=== PATIENT | female | born 1990 | race Caucasian/White ===

== ENCOUNTER 2020-02-09 19:51 | Emergency (ER) | payer MEDICAID, SELFPAY ==
[2020-02-09 19:53] VITALS: BP 126/95; PULSE 87; RESP 18; TEMP 36.3; O2SAT 97; BMI 41.8
[2020-02-09 20:09] VITALS: PULSE 82; RESP 14; O2SAT 96
[2020-02-09 20:11] LABS: Bedside Glucose 433 mg/dL (70-110)
--- NOTE | 2020-02-09 20:17 | ED.VIS.GEN ---
History of Present Illness Chief Complaint: Hyperglycemia Informant: Patient Current Severity: Moderate Maximum Severity: Moderate Narrative: Patient presents secondary to elevated blood sugar. She does not have a history of diabetes. She had back surgery 2 weeks ago at [facility] in [place]. She states she is not on steroids and really has not even been using pain medication. For the past couple weeks has been feeling woozy and dizzy. She has noted increased thirst, increased urination, and blurry vision. Her mother who was a diabetic checked her blood sugar today and it was reading high on her meter which typically checks to the level of 600. Patient has a history of PCOS and stopped taking metformin a year ago. She had some leftover so she took 1000 mg of metformin at 5:30 PM. When blood sugar did not drop she took a 500 mg extended release tab at 7 PM. On arrival here and advised that her blood sugar was reading 433. - Past Medical History (1) PCOS (polycystic ovarian syndrome) Status: Chronic (2) Hypothyroid Status: Chronic (3) Viral myocarditis Status: Resolved (4) Chronic back pain Status: Chronic Past Medical History - Allergies and Home Meds Allergies/Adverse Reactions: Allergies amoxicillin Adverse Reaction (Verified 02/09/20 19:54) Calvin Primary Care Physician: [facility] Doctor,Out of [NON-STAFF] - Prior records reviewed: Yes Lives: Spouse/ Significant Other Review of Systems General: Denies: Chills, Fever Eyes: Denies: Visual changes - bilaterally ENT: Denies: Bilateral ear pain Cardiovascular: Denies: Chest pain Respiratory: Denies: Dyspnea, Cough Gastrointestinal: Reports: Nausea. Denies: Abdominal pain, Vomiting Genitourinary: Reports: Frequency Musculoskeletal: Denies: Extremity Pain Skin: Denies: Rash Endocrine: Reports: Polyuria, Polydipsia Hematologic: Denies: Easy bruising, Easy bleeding Allergy: Denies: Uticaria Physical Exam Vital Signs/Narrative: Vital Signs Temp Pulse Resp BP Pulse Ox 02/09/20 19:53 97.4 F L 87 18 126/95 H 97 Inital Vital Signs reviewed: Yes General: Well nourished, Well developed Head: Normocephalic ENT: Moist mucous membranes Neck: Supple Cardiovascular: Regular rate, Regular rhythm Respiratory: No distress, CTA bilaterally Abdomen: Soft, Nontender Extremities: Nontender Skin: Normal color Neurological: Alert, Oriented x3 Psychological: Normal affect Diagnostic/Tx/Re-eval Laboratory Results 02/09/20 02/09/20 02/09/20 20:04 20:15 20:31 WBC 8.7 RBC 4.40 Hgb 13.4 Hct 38.3 MCV 87.0 MCH 30.5 MCHC 35.0 RDW Std Deviation 38.0 RDW Coeff of Debbie 11.9 Plt Count 303 MPV 10.5 Immature Gran % (Auto) 0.200 Neut % (Auto) 57.4 Lymph % (Auto) 34.9 Garrard % (Auto) 5.0 Eos % (Auto) 1.8 Baso % (Auto) 0.7 Absolute Neuts (auto) 5.0 Absolute Lymphs (auto) 3.05 Nucleated RBC % 0 Sodium Potassium Chloride Carbon Dioxide Anion Gap BUN Creatinine Estim Creat Clear Calc Est GFR (MDRD) Af Amer Est GFR (MDRD) Non-Af BUN/Creatinine Ratio Glucose Hemoglobin A1c Calcium Serum , Qual Urine Color Yellow Urine Clarity Clear Urine pH 6.5 Ur Specific [place] 1.010 Urine Protein Negative Urine Glucose (UA) 1000 H Urine Ketones 5 H Urine Occult Blood 25 H Urine Nitrite Negative Urine Bilirubin Negative Urine Urobilinogen Normal Ur Leukocyte Esterase 25 H Urine RBC 0-5 SEEN Urine WBC 0 SEEN Ur Squamous Epith Cells 0-5 SEEN Urine Bacteria 0 SEEN Urine Mucus 0 SEEN Acetone Level POC Glucose 433 H 02/09/20 02/09/20 02/09/20 20:31 20:31 20:31 WBC RBC Hgb Hct MCV MCH MCHC RDW Std Deviation RDW Coeff of Debbie Plt Count MPV Immature Gran % (Auto) Neut % (Auto) Lymph % (Auto) Garrard % (Auto) Eos % (Auto) Baso % (Auto) Absolute Neuts (auto) Absolute Lymphs (auto) Nucleated RBC % Sodium 131 L Potassium 3.8 Chloride 100 Carbon Dioxide 27.0 Anion Gap 4 L BUN 5 L Creatinine 0.85 Estim Creat Clear Calc 87.08 Est GFR (MDRD) Af Amer 100 Est GFR (MDRD) Non-Af 83 BUN/Creatinine Ratio 5.9 L Glucose 417 H Hemoglobin A1c 8.6 H Calcium 9.4 Serum , Qual Urine Color Urine Clarity Urine pH Ur Specific [place] Urine Protein Urine Glucose (UA) Urine Ketones Urine Occult Blood Urine Nitrite Urine Bilirubin Urine Urobilinogen Ur Leukocyte Esterase Urine RBC Urine WBC Ur Squamous Epith Cells Urine Bacteria Urine Mucus Acetone Level NEGATIVE POC Glucose 02/09/20 02/09/20 02/09/20 20:31 21:29 22:52 WBC RBC Hgb Hct MCV MCH MCHC RDW Std Deviation RDW Coeff of Debbie Plt Count MPV Immature Gran % (Auto) Neut % (Auto) Lymph % (Auto) Garrard % (Auto) Eos % (Auto) Baso % (Auto) Absolute Neuts (auto) Absolute Lymphs (auto) Nucleated RBC % Sodium Potassium Chloride Carbon Dioxide Anion Gap BUN Creatinine Estim Creat Clear Calc Est GFR (MDRD) Af Amer Est GFR (MDRD) Non-Af BUN/Creatinine Ratio Glucose Hemoglobin A1c Calcium Serum , Qual NEGATIVE Urine Color Urine Clarity Urine pH Ur Specific [place] Urine Protein Urine Glucose (UA) Urine Ketones Urine Occult Blood Urine Nitrite Urine Bilirubin Urine Urobilinogen Ur Leukocyte Esterase Urine RBC Urine WBC Ur Squamous Epith Cells Urine Bacteria Urine Mucus Acetone Level POC Glucose 348 H 285 H - Medical Decision Making Patient's blood sugar was 433 on arrival. She had taken metformin at home prior to coming in. After 1 L of IV fluid blood sugar was 348 and after 2 L of IV fluid sugars 285. She states she actually feels worse at this time. She has not eaten anything today. She is given something to eat. I advised her that my concern is that her blood sugars dropping too quickly as she has likely acclimated to elevated blood sugars in the past several weeks. She is observed until 5 hours after her most recent dose of metformin. Blood sugar we checked at this time. She will contact her PCP in [place] tomorrow. I did advise that they cannot call the medical records department and her records could be faxed with her blood results tonight. ED Disposition - Plan for ED Patient: Disposition: Home or Assisted Living Diagnosis: Diabetes mellitus, new onset Instructions: ED Hyperglycemia New Susp Diabetes Referrals: [facility] Doctor,Out of [NON-STAFF] - 1 Day
[2020-02-09] MEDS: 0.9% Normal Saline 1,000 ML 1000 ML IV (20:29)
[2020-02-09 20:38] LABS: Absolute Lymphocyte Count 3.05 X10^3/uL (0.83-4.51); Basophil# 0.06 X10^3/uL; Basophil% 0.7 % (0-1); Eosinophil# 0.16 X10^3/uL; Eosinophils% 1.8 % (0-5); Hematocrit 38.3 % (37-47); Hemoglobin 13.4 g/dL (12.0-15.0); Lymphocyte # 3.05 X10^3/ul (4.0); Lymphocyte % 34.9 % (19-41); Mean Corpuscular Hgb 30.5 pg (27.0-32.0); Mean Platelet Vol. 10.5 fl (6.2-12.0); Monocyte# 0.44 X10^3/uL; NRBC Flagged by Analyzer 0 % (0-5); Neutrophil % 57.4 % (47-70); Platelet Count 303 K/mm3 (150-450); RBC Distribution Width CV 11.9 % (11.6-14.6); White Blood Count 8.7 K/mm3 (4.4-11.0)
[2020-02-09 20:53] LABS: Bacteria 0 SEEN /hpf (None Seen); Mucous, Urine 0 SEEN /hpf (<or=2+); White Blood Cells 0 SEEN /hpf (0-5)
[2020-02-09 20:55] LABS: Color, Urine Yellow (Yellow); Glucose, Dipstick 1000 mg/dl (Normal); Ketone-Dipstick 5 mg/dl (Negative); Leukocyte Esterase-Dipstick 25 /ul (Negative); Nitrite-Dipstick Negative (Negative); Occult Blood-Urine 25 /ul (Negative); Protein-Dipstick Negative (Negative); Urine Bilirubin Dipstick Negative (Negative); Urine Clarity Clear (Clear); Urine Urobilinogen Normal (Normal); Urine pH 6.5 (5.0 - 8.0)
[2020-02-09 21:02] LABS: Squamous Epithelial Cells - UA 0-5 SEEN /hpf (5-10)
[2020-02-09 21:03] LABS: Red Blood Cells-Urine 0-5 SEEN /hpf (0-5)
[2020-02-09 21:10] LABS: Anion Gap 4 (5-15); BUN 5 mg/dL (7-18); BUN/Creat Ratio 5.9 RATIO (10-20); Calcium,Total 9.4 mg/dL (8.5-10.1); Chloride 100 mmol/L (98-107); Creatinine, Serum 0.85 mg/dL (0.55-1.02); EST Glomerular Filtration Rate 83 mL/min (>60); Est Glom Filt Rate - Afr Amer 100 mL/min (>60); Estimated Creatinine Clearance 87.08 ml/min; Glucose 417 mg/dL (74-106); Potassium 3.8 mmol/L (3.5-5.1); Sodium Level 131 mmol/L (136-145)
[2020-02-09 21:14] LABS: Hemoglobin A1c 8.6 % (3.8-5.6); Internal QC Validated? YES +Cl - CLEAR BKGD; Pregnancy, Serum, hCG Quali. NEGATIVE Negative
[2020-02-09] MEDS: 0.9% Normal Saline 1,000 ML 999 ML IV (21:33)
[2020-02-09 21:35] LABS: Bedside Glucose 348 mg/dL (70-110)
[2020-02-09 22:54] VITALS: BP 132/89; PULSE 89; RESP 15; O2SAT 99
[2020-02-09 23:01] LABS: Bedside Glucose 285 mg/dL (70-110)
[2020-02-10 00:31] LABS: Bedside Glucose 226 mg/dL (70-110)
== END 2020-02-10 00:24 | disposition home or self-care (01) ==
PROVIDERS: Emergency Provider Emergency Medicine
DX: E11.65 Type 2 diabetes mellitus with hyperglycemia (principal); E28.2 Polycystic ovarian syndrome
CPT/HCPCS: 80048; 81001; 82009; 82962; 83036; 84703; 85025; 96360; 96361; 99282; J7030

== ENCOUNTER → 2020-07-18 | Outpatient (CLI) | payer MEDICAID, SELFPAY ==
[2020-07-18 14:09] VITALS: BMI 44.3
[2020-07-18 18:56] LABS: Chlamydia Trachomatis by PCR Negative (Negative); Neisserai gonorrhoeae by PCR Negative (Negative); Probe Check PASS; Sample Adequacy Control PASS; Specimen Processing Control PASS
[2020-07-21 21:15] LABS: HPV APTIMA, High Risk Negative (Negative)
== END | disposition home or self-care (01) ==
LOC: LABSPEC 15:13
PROVIDERS: Referring Provider Nurse Practitioner Women's Health; Visit Provider Nurse Practitioner Women's Health
DX: Z11.3 Encounter for screening for infections with a predominantly sexual mode of transmission (principal); Z12.4 Encounter for screening for malignant neoplasm of cervix
CPT/HCPCS: 87491; 87591; 87624; 88175; G0145

== ENCOUNTER 2022-05-10 12:49 | Emergency (ER) | payer MEDICAID, SELFPAY ==
[2022-05-10 12:50] VITALS: BP 147/89; PULSE 92; RESP 18; TEMP 36.4; O2SAT 100; BMI 39.1
--- NOTE | 2022-05-10 13:37 | EKG12_ITS ---
Test Reason : PAIN Blood Pressure : / mmHG Vent. Rate : 082 BPM Atrial Rate : 082 BPM P-R Int : 190 ms QRS Dur : 086 ms QT Int : 374 ms P-R-T Axes : 053 -11 013 degrees QTc Int : 436 ms Normal sinus rhythm Minimal voltage criteria for LVH, may be normal variant ( R in aVL ) Borderline ECG Confirmed by LUCERO BYRNES, JAYNE ([id number]), book or script editor MIKIE WASSERMAN ([id number]) on 05/13/2022 1:20:45 PM Referred By: Confirmed By:JAYNE BARKER MD
--- NOTE | 2022-05-10 13:43 | EDS_ITS ---
[facility] <HEIDY Castañeda - Last Filed: 05/10/22 19:25> History of Present Illness Chief Complaint: Back Narrative Narrative: Patient presents with 2 days of mid upper left-sided back pain that radiates into her left rib cage and under the left breast. She has a history of back problems and has had 3 lumbar back surgeries. She has a history of spinal stenosis, arthritis in her back, bone spurs, and herniated disks in her lumbar spine. She reports no aggravated injury, no heavy lifting. She reports limited range of motion in her back, left arm, and neck. She did take her usual cyclobenzaprine and gabapentin last night with no relief of pain. She reports she had some tingling in her L arm this morning that quickly went away. She has no history of blood clots. She denies shortness of breath, difficulty breathing, smoking, and a history of cardiac problems. [facility] <HEIDY Castañeda - Last Filed: 05/10/22 19:25> [facility] Medical History (Updated 05/10/22 @ 15:[address] Nini Huerta MD) Anxiety Hypothyroidism PCOS (polycystic ovarian syndrome) Type 2 diabetes mellitus Home Medications cyclobenzaprine 5 mg tablet 5 mg PO QHS 07/18/20 [History Last Taken Unknown] escitalopram oxalate 5 mg tablet (Lexapro) 5 mg PO DAILY 07/18/20 [History Last Taken Unknown] gabapentin 100 mg capsule (Neurontin) 100 mg PO DAILY 07/18/20 [History Last Taken Unknown] glipizide 5 mg tablet 5 mg PO DAILY 07/18/20 [History Last Taken Unknown] levothyroxine 25 mcg tablet (Synthroid) 25 mcg PO DAILY 07/18/20 [History Last Taken Unknown] metformin 500 mg tablet 500 mg PO DAILY 07/18/20 [History Last Taken Unknown] norgestimate 0.25 mg-ethinyl estradiol 35 mcg tablet (Sprintec (28)) 1 tab PO QDAY #84 tabs 07/18/20 [Rx Last Taken Unknown] hydrocodone-acetaminophen 5-325mg 5mg-325mg 1 tab PO Q6H PRN pain 3 days #10 tabs 05/10/22 [Rx Last Taken Unknown] prednisone 20 mg tablet 40 mg PO DAILY #10 tabs 05/10/22 [Rx Last Taken Unknown] Allergy/AdvReac Type Severity Reaction Status Date / Time amoxicillin AdvReac Hives Verified 05/10/22 12:52 Family History Mother Hypertension Diabetes Hyperlipidemia Grandmother Breast cancer Heart disease Diabetes Surgical History History of back surgery History of cholecystectomy Social History household members: significant other and children number of children: 2 current occupational status: employed current occupation: works from home history of recent travel: No sexually active: Yes Smoking Status: Never smoker alcohol intake: current alcohol intake frequency: holidays/special occasions only substance use type: does not use what type of physical activity do you participate in: walking and bicycling seatbelt use: always do you feel safe at home: Yes additional social history: single ROS <HEIDY Castañeda - Last Filed: 05/10/22 19:25> ROS ED Constitutional Constitutional ED: Denies chills or fever(s) Eyes Eyes: Denies change in vision Cardiovascular Cardiovascular: Reports chest pain and other Details: Patient states her chest pain is location below the L breast and radiates into the L ribcage. ; Denies racing heartbeat Respiratory/Chest Respiratory/Chest: Denies dyspnea or dyspnea on exertion Gastrointestinal Gastrointestinal: Denies abdominal pain, constipation, diarrhea, nausea or vomiting Genitourinary Genitourinary ED: Denies dysuria Musculoskeletal Musculoskeletal: Reports back pain Integumentary Denies Abrasions or rash Neurologic Neurologic: Denies headache(s) or weakness EXAM <HEIDY Castañeda - Last Filed: 05/10/22 19:25> Physical Exam Const Vital Signs: 05/10/22 12:50 Temperature 97.5 F L Temperature Source Temporal Pulse Rate 92 Respiratory Rate 18 Blood Pressure 147/89 H Blood Pressure Mean 108 Pulse Ox 100 Positive well nourished HEENT Reports moist mucous membranes Eyes PERRL and EOMs intact bilaterally Neck supple General: Negative for tenderness Chest Wall Chest: other Tenderness to palpation under left breast and along left rib cage. Resp normal respiratory effort and clear to auscultation bilaterally Effort and Inspection: Negative for pain with movement Auscultation: Negative for rales, rhonchi, wheezes or diminished lung sounds Cardio regular rate, regular rhythm and no murmurs GI normal to inspection, nondistended, normoactive bowel sounds, soft to palpation and non-tender Back/Spine Back/Spine Narrative: Tenderness to palpation along left upper back. No redness, swelling, or ecchymosis. Extremity normal to inspection Extremity Narrative: Left arm limited range of motion. Neuro oriented x3 and no sensory deficits noted Sensorium / Orientation: alert Psych mental status grossly normal Skin no rashes or lesions noted and no wounds <Dr. Nini Huerta MD - Last Filed: 05/10/22 15:18> Physical Exam Const Vital Signs: 05/10/22 12:50 Temperature 97.5 F L Temperature Source Temporal Pulse Rate 92 Respiratory Rate 18 Blood Pressure 147/89 H Blood Pressure Mean 108 Pulse Ox 100 MDM <HEIDY Castañeda - Last Filed: 05/10/22 19:25> [facility] Narrative Medical decision making narrative: The pain patient is experiencing in her upper L back is out of the norm compared to her usual lumbar back pain. To rule out PE or any cardiovascular findings I have ordered an EKG, troponin, D-dimer, and chest x-ray. She has been given Toradol IV and a lidocaine patch for pain. She did drive herself today. Patient's D-dimer was elevated at 1.12, I have ordered a CTA of the chest to rule out PE. CTA of the chest did not show any PE. She is stable and able to discharge home. Lab Data Labs: Laboratory Results - last 24 hr 05/10/22 05/10/22 13:48 13:48 D-Dimer Quant (PE/DVT) 1.12 H* Troponin I High Sens 4 Radiography Diagnostic Testing: Clinical Impression(s) from Imaging Studies Chest X-Ray 05/10/22 13:55 IMPRESSION: Normal x-ray examination of the chest. Electronically Signed: Bladimir Wise MD at 14:15 EDT , Chest CTA 05/10/22 14:29 IMPRESSION: Normal CTA chest examination, without a demonstrated pulmonary embolism or arterial dissection. Minimal degree of dependent bibasilar atelectasis. Electronically Signed: Bladimir Wise MD at 15:08 EDT , <Dr. Nini Huerta MD - Last Filed: 05/10/22 15:18> [facility] Lab Data Labs: Laboratory Results - last 24 hr 05/10/22 05/10/22 13:48 13:48 D-Dimer Quant (PE/DVT) 1.12 H* Troponin I High Sens 4 Radiography Diagnostic Testing: Clinical Impression(s) from Imaging Studies Chest X-Ray 05/10/22 13:55 IMPRESSION: Normal x-ray examination of the chest. Electronically Signed: Bladimir Wise MD at 14:15 EDT , Chest CTA 05/10/22 14:29 IMPRESSION: Normal CTA chest examination, without a demonstrated pulmonary embolism or arterial dissection. Minimal degree of dependent bibasilar atelectasis. Electronically Signed: Bladimir Wise MD at 15:08 EDT , Treatment and Re-Evaluation Narrative: Patient seen and evaluated with OZ. I personally interviewed and examined the patient. I was involved in all aspects of patient's orders, interpretation of results, and treatment. Patient presents with left upper back pain that wraps around her chest and under the left breast. Pain does seem to be worse with deep breath and movement. She is a history of chronic back pain but states is always in her lower lumbar region. No significant cough or recent URI symptoms. Patient sitting upright in bed no acute distress. Head and neck examination unremarkable. Heart is regular rate and rhythm. Lung sounds are clear. Abdomen is soft and nontender. Back examination reveals reproducible tenderness in the left thoracic paraspinal region just inferior to the scapula. No overlying skin change. EKG is obtained reveals sinus rhythm with no acute ischemia. Troponin is normal but D-dimer is elevated at 1.12. CTA of the chest is obtained and reveals no evidence of PE or dissection. Patient was given Toradol here along with a Lidoderm patch as she is driving herself. I did do an [facility] report. She has not had an opiate in a year and a half. She will be given a short course of Craig along with some prednisone. She has Flexeril at home to take. Return instructions provided. Discharge Plan Triage Chief Complaint: Back ED Midlevel Provider: Rosio Harding ED Provider: Nini Huerta Dx/Rx/DC Orders Clinical Impression: Back pain Instructions: ED Back Pain (Acute or Chronic) Prescriptions: New hydrocodone-acetaminophen 5-325 mg tablet 1 tab PO Q6H PRN (Reason: pain) 3 Days Qty: 10 0RF prednisone 20 mg tablet 40 mg PO DAILY Qty: 10 0RF No Action escitalopram oxalate [Lexapro] 5 mg tablet 5 mg PO DAILY levothyroxine [Synthroid] 25 mcg tablet 25 mcg PO DAILY cyclobenzaprine 5 mg tablet 5 mg PO QHS gabapentin [Neurontin] 100 mg capsule 100 mg PO DAILY glipizide 5 mg tablet 5 mg PO DAILY metformin 500 mg tablet 500 mg PO DAILY norgestimate-ethinyl estradiol [Sprintec (28)] 0.25-35 mg-mcg tablet 1 tab PO QDAY Qty: 84 4RF Primary Care Provider: Merlene Moya Referrals: Care Physician,No Primary [Non-Staff] - Activity Restrictions/Additional Instructions: Follow-up with your back doctor if not improving in 5 to 7 days. Disposition Disposition: Home, Self Care Discharge Date/Time: 05/10/22 15:22
--- NOTE | 2022-05-10 13:46 | NURSING ---
NO OLD EKGS
--- NOTE | 2022-05-10 13:55 | RAD_ITS ---
STUDY: X-RAY CHEST REASON FOR EXAM: Female, 31 years old. Chest pain TECHNIQUE: Single AP portable view of the chest. COMPARISON: None. FINDINGS: The lungs are clear and expanded. There is no demonstrated pleural abnormality. Normal size heart. Normal mediastinum and lyndsay. Normal visualized pulmonary arteries. Normal visualized aortic arch and descending thoracic aorta. Normal visualized thoracic spine. Normal visualized ribs, clavicles, and shoulders. There is no demonstrated abnormality of the visualized soft tissue structures of the upper abdomen. RAD/Chest 1 View (Portable) IMPRESSION: Normal x-ray examination of the chest. Electronically Signed: Bladimir Wise MD at 14:15 EDT ,
[2022-05-10] MEDS: Lidocaine 5% Patch 1 PATCH TOPICAL (14:08)
[2022-05-10] MEDS: Ketorolac 30 MG/ML Syringe IV (14:08)
[2022-05-10 14:14] LABS: D-Dimer Quantitative (DVT/PE) 1.12 FEU/ug/m (0.27-0.49)
[2022-05-10 14:15] LABS: Troponin-I HS (w/2H Reflex) 4 pg/mL (3.0-54.0)
--- NOTE | 2022-05-10 14:29 | CT_ITS ---
STUDY: CTA CHEST REASON FOR EXAM: Female, 31 years old. Elevated D-Dimer RADIATION DOSAGE (If Supplied By Facility): CTDIvol = ( 12.58 ) mGy, DLP = ( 428.07 ) mGycm TECHNIQUE: The examination was performed with the intravenous administration of IV 100mL [id number]-[id number]. Post-processing of the angiographic images was performed, with multiplanar reformation and 3D reconstruction. Individualized dose optimization techniques were used for this CT. COMPARISON: Comparison is made with prior chest radiograph done earlier today. FINDINGS: Normal enhancement of the main pulmonary artery and right and left pulmonary arteries. Normal enhancement of the bilateral peripheral pulmonary arteries. There is no demonstrated pulmonary embolism. Normal thoracic aorta and visualized great vessels. There is no demonstrated aortic dissection. Normal heart and pericardium. Normal mediastinum. Normal hilar regions. Normal visualized trachea and bronchi. The lungs are well expanded. Minimal degree of dependent bibasilar atelectasis. Normal pleura. Normal chest wall structures. There are mild degenerative changes of thoracic spine. Normal visualized upper abdomen. CT/CTA Chest W/WO Contrast IMPRESSION: Normal CTA chest examination, without a demonstrated pulmonary embolism or arterial dissection. Minimal degree of dependent bibasilar atelectasis. Electronically Signed: Bladimir Wise MD at 15:08 EDT ,
--- NOTE | 2022-05-10 15:50 | CM.ED ---
SW noted that patient's chart said that she has no PCP. SW was advise that patient has a PCP, Mary Lou Moya at [facility]. Registration Updated. Sarah SANABRIA
== END 2022-05-10 15:22 | disposition home or self-care (01) ==
PROVIDERS: Physician Assistant; Emergency Provider Emergency Medicine; PCP Student in an Organized Health Care Education/Training Program; Visit Provider Emergency Medicine
DX: M54.9 Dorsalgia, unspecified (principal); E11.9 Type 2 diabetes mellitus without complications; R07.81 Pleurodynia
CPT/HCPCS: 71045; 71275; 84484; 85379; 93005; 96374; 99283; Q9967

== ENCOUNTER 2022-08-16 19:59 | Emergency (ER) | payer MEDICAID, SELFPAY ==
[2022-08-16 20:02] VITALS: BP 132/91; PULSE 88; RESP 16; TEMP 36.2; BMI 41.4
--- NOTE | 2022-08-16 20:51 | EDS_ITS ---
HPI History of Present Illness Chief Complaint: Abscess Narrative Narrative: 31-year-old female presents with what she believes is an abscess of her scalp. She states that she has had cysts in her scalp and in her forehead that she has popped in the past, and has an area on her right occipital parietal area that has been growing for 10 years. Over the last week, she states she was doing some painting and had paint in her hair. She scratched the area underneath, and now the area is firm. She states that it was more mobile and fluctuant over the last 10 years, but the area became firm and hardened. She feels that it is inflamed. She denies any fevers or chills. No nausea or vomiting, no other symptoms. She was going to go to [facility], but it was too late so she presents to the emergency department because the pain and swelling of her scalp. [facility] Medical History Anxiety Hypothyroidism PCOS (polycystic ovarian syndrome) Type 2 diabetes mellitus Home Medications cyclobenzaprine 5 mg tablet 5 mg PO QHS 07/18/20 [History Last Taken Unknown] escitalopram oxalate 5 mg tablet (Lexapro) 5 mg PO DAILY 07/18/20 [History Last Taken Unknown] gabapentin 100 mg capsule (Neurontin) 100 mg PO DAILY 07/18/20 [History Last Taken Unknown] glipizide 5 mg tablet 5 mg PO DAILY 07/18/20 [History Last Taken Unknown] levothyroxine 25 mcg tablet (Synthroid) 25 mcg PO DAILY 07/18/20 [History Last Taken Unknown] metformin 500 mg tablet 500 mg PO DAILY 07/18/20 [History Last Taken Unknown] norgestimate 0.25 mg-ethinyl estradiol 35 mcg tablet (Sprintec (28)) 1 tab PO QDAY #84 tabs 07/18/20 [Rx Last Taken Unknown] hydrocodone-acetaminophen 5-325mg 5mg-325mg 1 tab PO Q6H PRN pain 3 days #10 tabs 05/10/22 [Rx Last Taken Unknown] prednisone 20 mg tablet 40 mg PO DAILY #10 tabs 05/10/22 [Rx Last Taken Unknown] doxycycline hyclate 100 mg tablet 100 mg PO BID #14 tabs 08/16/22 [Rx Last Taken Unknown] Allergy/AdvReac Type Severity Reaction Status Date / Time amoxicillin AdvReac Hives Verified 08/16/22 20:19 Family History Mother Hypertension Diabetes Hyperlipidemia Grandmother Breast cancer Heart disease Diabetes Surgical History History of back surgery History of cholecystectomy Social History household members: significant other and children number of children: 2 current occupational status: employed current occupation: works from home history of recent travel: No sexually active: Yes Smoking Status: Never smoker alcohol intake: current alcohol intake frequency: holidays/special occasions only substance use type: does not use what type of physical activity do you participate in: walking and bicycling seatbelt use: always do you feel safe at home: Yes additional social history: single ROS ROS ED ROS Narrative Constitutional: No fever, no chills. HEENT: No sore throat. No neck pain. No loss of vision. No rhinorrhea. Right posterior scalp pain and swelling near crown of head. Cardiovascular: No chest pain. No palpitations. No pedal edema. Respiratory: No cough, no shortness of breath. Abdominal: No abdominal pain. No nausea. No vomiting. Genitourinary: No dysuria. No hematuria. Musculoskeletal: No myalgias. No arthralgias. Neurologic: No headaches. No dizziness. No lightheadedness. Skin: No rash. No change in color. Psychiatric: No depression. No anxiety. EXAM Physical Exam Narrative Exam Narrative: Afebrile. Vital signs noted. Nontoxic-appearing. HEENT: Normocephalic. Atraumatic. PERRL, EOMI. Neck soft and supple. No point tenderness or step off. On top of scalp there is an indurated area and what appears to be mild folliculitis. No overt fluctuance. Cardiovascular: Regular rate and rhythm. No murmurs, rubs, or gallops appreciated. Respiratory: No tachypnea. Lungs clear to auscultation bilaterally. Gastrointestinal: Abdomen soft, nontender, with normoactive bowel sounds. No rebound or guarding. Neurological: Awake. Alert. Nonfocal, nonlateralizing. Skin: No rash. Normal color. No pallor. Musculoskeletal: No pedal edema. Full range of motion extremities. Const Vital Signs: 08/16/22 20:02 08/16/22 20:02 Temperature 97.2 F L 97.2 F L Temperature Source Temporal Temporal Pulse Rate 88 88 Respiratory Rate 16 16 Blood Pressure 132/91 H 132/91 H Blood Pressure Mean 104 104 MDM MDM MDM Narrative Medical decision making narrative: I had a lengthy discussion with the patient regarding incision and drainage. I do not feel that this is a large abscess that requires incision and drainage, and additionally it may have been more of a sebaceous cyst. There is area of erythema and what appears to be inflamed follicle on her scalp. She will apply warm compresses and she was given her first dose of doxycycline here and a prescription written for the next week to take twice a day. I do not feel that this is amenable to incision and drainage at this time. I feel that she can be discharged safely home with follow-up to her primary care provider. She also wanted referral to a local environmental health and safety manager and/or surgeon for sebaceous cyst removal as needed. Return instructions to the emergency department were reviewed. Disposition is discharged home in stable condition. Discharge Plan Triage Chief Complaint: Abscess ED Provider: Tyler Lara Dx/Rx/DC Orders Clinical Impression: Folliculitis, Scalp abscess Instructions: ED Abscess Antibiotic Treatment Only, ED Folliculitis Prescriptions: New doxycycline hyclate 100 mg tablet 100 mg PO BID Qty: 14 0RF No Action escitalopram oxalate [Lexapro] 5 mg tablet 5 mg PO DAILY levothyroxine [Synthroid] 25 mcg tablet 25 mcg PO DAILY cyclobenzaprine 5 mg tablet 5 mg PO QHS gabapentin [Neurontin] 100 mg capsule 100 mg PO DAILY glipizide 5 mg tablet 5 mg PO DAILY metformin 500 mg tablet 500 mg PO DAILY norgestimate-ethinyl estradiol [Sprintec (28)] 0.25-35 mg-mcg tablet 1 tab PO QDAY Qty: 84 4RF hydrocodone-acetaminophen 5-325 mg tablet 1 tab PO Q6H PRN (Reason: pain) 3 Days Qty: 10 0RF prednisone 20 mg tablet 40 mg PO DAILY Qty: 10 0RF Primary Care Provider: Merlene Moya Referrals: Merlene Moya, DO [Primary Care Provider] - 3-5 Days if not improving Elvia Steiner MD [Med Staff - Active Staff] - As Needed Casimiro Adhikari MD [Med Staff - [employer]] - As soon as possible Disposition Disposition: Home, Self Care
[2022-08-16 21:02] VITALS: RESP 16
[2022-08-16] MEDS: Doxycycline 100 MG CAPSULE PO (21:31)
== END 2022-08-16 21:33 | disposition home or self-care (01) ==
PROVIDERS: Emergency Provider Emergency Medicine; PCP Student in an Organized Health Care Education/Training Program; Visit Provider Emergency Medicine
DX: L02.811 Cutaneous abscess of head [any part, except face] (principal); E11.9 Type 2 diabetes mellitus without complications; L73.9 Follicular disorder, unspecified; F41.9 Anxiety disorder, unspecified; Z79.899 Other long term (current) drug therapy; E03.9 Hypothyroidism, unspecified
CPT/HCPCS: 99283